=== PATIENT | female | born 1990 | race Caucasian/White ===

== ENCOUNTER 2019-03-18 19:55 | Emergency (ER) | payer OTHER ==
[~2019-03-18] VITALS: Ht 170.2 cm; Wt 59.0 kg
[~2019-03-18 19:55] MED LIST: AMOX50SU; CEPH500 PO; HYDROCODONE/TYLENOL
[2019-03-18] MEDS ORDERED: HYDR1TAB94 PO (21:44)
== END 2019-03-18 21:52 | disposition home or self-care (01) ==
LOC: ER 19:55
DX: S62.307A Unspecified fracture of fifth metacarpal bone, left hand, initial encounter for closed fracture (principal); V29.9XXA Motorcycle rider (driver) (passenger) injured in unspecified traffic accident, initial encounter
CPT/HCPCS: 29125; 73030; 73130; 99283-25; A9270

== ENCOUNTER 2019-06-10 15:00 | Emergency (ER) | payer OTHER ==
[~2019-06-10] VITALS: Ht 170.2 cm; Wt 59.0 kg
[~2019-06-10 15:00] MED LIST changes: +HYDR1TAB94 PO
[2019-06-10] MEDS ORDERED: Prednisone20 MG PO (15:45)
[2019-06-10] MEDS ORDERED: CEFD300 PO (15:45)
[2019-06-10] MEDS ORDERED: ALBU90OI INH (15:45)
== END 2019-06-10 16:04 | disposition home or self-care (01) ==
LOC: ER 15:00
DX: J45.901 Unspecified asthma with (acute) exacerbation (principal); L08.89 Other specified local infections of the skin and subcutaneous tissue; B95.8 Unspecified staphylococcus as the cause of diseases classified elsewhere; F17.200 Nicotine dependence, unspecified, uncomplicated; Z79.899 Other long term (current) drug therapy; Z79.52 Long term (current) use of systemic steroids
CPT/HCPCS: 94640; 99283-25

== ENCOUNTER 2019-07-10 14:18 | Emergency (ER) | payer OTHER ==
[~2019-07-10] VITALS: Ht 170.2 cm; Wt 59.0 kg
[~2019-07-10 14:18] MED LIST changes: +ALBU90OI INH; +CEFD300 PO; +Prednisone20 MG PO
[2019-07-10] MEDS ORDERED: Bactrim Ds Tab1 EACH PO (14:50)
== END 2019-07-10 14:58 | disposition home or self-care (01) ==
LOC: ER 14:18
DX: K13.0 Diseases of lips (principal); F17.200 Nicotine dependence, unspecified, uncomplicated
CPT/HCPCS: 99282

== ENCOUNTER 2019-09-25 15:16 | Emergency (ER) | payer OTHER ==
[~2019-09-25] VITALS: Ht 170.2 cm; Wt 59.0 kg
[~2019-09-25 15:16] MED LIST changes: +Bactrim Ds Tab1 EACH PO
[2019-09-25] MEDS ORDERED: Bactrim Ds Tab1 EACH PO (17:52)
[2019-09-25] MEDS ORDERED: CEPH500 PO (17:52)
== END 2019-09-25 18:14 | disposition home or self-care (01) ==
LOC: ER 15:16
DX: L02.416 Cutaneous abscess of left lower limb (principal); L03.116 Cellulitis of left lower limb; F17.210 Nicotine dependence, cigarettes, uncomplicated
CPT/HCPCS: 99282; A9270-GY

== ENCOUNTER 2020-06-24 15:11 | Emergency (ER) | payer OTHER ==
[~2020-06-24] VITALS: Ht 172.7 cm; Wt 63.5 kg
[2020-06-24] MEDS ORDERED: Norco 5-325 Ta1 EACH PO (15:29)
[2020-06-24] MEDS ORDERED: Zovirax800 MG PO (15:29)
== END 2020-06-24 15:38 | disposition home or self-care (01) ==
LOC: ER 15:11
DX: B02.9 Zoster without complications (principal); F17.200 Nicotine dependence, unspecified, uncomplicated
CPT/HCPCS: 99282

== ENCOUNTER 2020-09-08 15:08 | Emergency (ER) | payer OTHER ==
[~2020-09-08] VITALS: Ht 170.2 cm; Wt 56.7 kg
[~2020-09-08 15:08] MED LIST changes: +Norco 5-325 Ta1 EACH PO; +Zovirax800 MG PO
[2020-09-08] MEDS ORDERED: Veetids 500500 MG PO (18:01)
[2020-09-08] MEDS ORDERED: ALBU90OI INH (18:01)
== END 2020-09-08 18:11 | disposition home or self-care (01) ==
LOC: ER 15:08
DX: J02.9 Acute pharyngitis, unspecified (principal); J45.909 Unspecified asthma, uncomplicated; F17.210 Nicotine dependence, cigarettes, uncomplicated
CPT/HCPCS: 87077; 87081; 87185; 87430; 99283

== ENCOUNTER 2021-02-01 18:16 | Emergency (ER) | payer OTHER ==
[~2021-02-01] VITALS: Ht 170.2 cm; Wt 56.7 kg
[~2021-02-01 18:16] MED LIST changes: +Veetids 500500 MG PO
[2021-02-01] MEDS ORDERED: Penicillin V P500 MG PO (18:35)
== END 2021-02-01 19:05 | disposition home or self-care (01) ==
LOC: ER 18:16
DX: K04.7 Periapical abscess without sinus (principal); K03.81 Cracked tooth; F17.210 Nicotine dependence, cigarettes, uncomplicated
CPT/HCPCS: 99282

== ENCOUNTER 2021-06-18 20:50 | Emergency (ER) | payer OTHER ==
[~2021-06-18] VITALS: Ht 170.2 cm; Wt 61.2 kg
[~2021-06-18 20:50] MED LIST changes: +Cleocin HCl300 MG PO; +Penicillin V P500 MG PO
== END 2021-06-18 22:17 | disposition home or self-care (01) ==
LOC: ER 20:50
DX: Z48.01 Encounter for change or removal of surgical wound dressing (principal); J45.909 Unspecified asthma, uncomplicated; F17.210 Nicotine dependence, cigarettes, uncomplicated; Z79.899 Other long term (current) drug therapy
CPT/HCPCS: 99282

== ENCOUNTER 2021-12-19 18:10 | Emergency (ER) | payer OTHER ==
[~2021-12-19] VITALS: Ht 170.2 cm; Wt 61.2 kg
== END 2021-12-19 20:54 | disposition left against medical advice (07) ==
LOC: ER 18:10
DX: L02.413 Cutaneous abscess of right upper limb (principal); Z53.21 Procedure and treatment not carried out due to patient leaving prior to being seen by health care provider; J45.909 Unspecified asthma, uncomplicated; F17.210 Nicotine dependence, cigarettes, uncomplicated; Z79.899 Other long term (current) drug therapy
CPT/HCPCS: 99282; A9270

== ENCOUNTER 2021-12-28 20:37 | Emergency (ER) | payer OTHER ==
[~2021-12-28] VITALS: Ht 170.2 cm; Wt 63.5 kg
== END 2021-12-28 22:45 | disposition left against medical advice (07) ==
LOC: ER 20:37
DX: L02.413 Cutaneous abscess of right upper limb (principal); Z53.21 Procedure and treatment not carried out due to patient leaving prior to being seen by health care provider
CPT/HCPCS: 99281

== ENCOUNTER 2024-11-06 18:18 | Emergency (ER) | payer OTHER ==
[~2024-11-06] VITALS: Ht 170.2 cm; Wt 81.7 kg
[2024-11-06 18:46] VITALS: BP 143/83
[2024-11-06] MEDS ORDERED: AMOCLA875 PO (19:45)
[2024-11-06] MEDS ORDERED: Amoxicillin/Clavulanate K 875 MG Tab PO ONE (19:45)
== END 2024-11-06 19:52 | disposition home or self-care (01) ==
LOC: ER 18:18
DX: K08.89 Other specified disorders of teeth and supporting structures (principal); Z79.2 Long term (current) use of antibiotics
CPT/HCPCS: 99282; A9270